=== PATIENT | female | born 1950 | race African-American/Black ===

== ENCOUNTER 2016-06-19 17:18 | Emergency (ER) | payer OTHER ==
[~2016-06-19] VITALS: Ht 167.6 cm; Wt 113.0 kg
[~2016-06-19 17:18] MED LIST: CYMBALTA60 MG PO; FLEXERIL PO; FLONASE 0.05%50 MCG NASAL; LYRICA 50 MG50 MG PO; MAXZIDE-25 MG1 EACH PO; NORCO 5-325 TA1 EACH PO; TESSALON PERLE100 MG PO
[2016-06-19 18:58] VITALS: BP 134/83
== END 2016-06-19 18:58 | disposition home or self-care (01) ==
LOC: ER 17:18
DX: S09.8XXA Other specified injuries of head, initial encounter (principal); I10 Essential (primary) hypertension; Z88.0 Allergy status to penicillin; W18.09XA Striking against other object with subsequent fall, initial encounter; Y93.89 Activity, other specified; Y92.89 Other specified places as the place of occurrence of the external cause; Y99.8 Other external cause status

== ENCOUNTER 2018-06-27 19:28 | Emergency (ER) | payer OTHER ==
[~2018-06-27] VITALS: Ht 167.6 cm; Wt 108.9 kg
[2018-06-27] MEDS ORDERED: INDOMETHACIN 5050 M1 PO (20:18)
[2018-06-27] MEDS ORDERED: NORCO 5-325 TA1 EACH PO (20:18)
[2018-06-27] MEDS ORDERED: COLCHICINE0.6 MG PO (20:18)
[2018-06-27 20:45] VITALS: BP 144/72
== END 2018-06-27 20:45 | disposition home or self-care (01) ==
LOC: ER 19:28
DX: M10.072 Idiopathic gout, left ankle and foot (principal); I10 Essential (primary) hypertension; Z96.641 Presence of right artificial hip joint; Z96.651 Presence of right artificial knee joint

== ENCOUNTER 2019-09-02 17:07 | Emergency (ER) | payer OTHER ==
[~2019-09-02] VITALS: Ht 165.1 cm; Wt 111.6 kg
[~2019-09-02 17:07] MED LIST changes: +COLCHICINE0.6 MG PO; +INDOMETHACIN 5050 M1 PO
[2019-09-02] MEDS ORDERED: PREDNISONE 20 M20 MG PO (18:04)
[2019-09-02] MEDS ORDERED: FAMOTIDINE 20 M20 MG PO (18:04)
[2019-09-02 19:08] VITALS: BP 132/74
== END 2019-09-02 19:09 | disposition home or self-care (01) ==
LOC: ER 17:07
DX: T78.40XA Allergy, unspecified, initial encounter (principal); I10 Essential (primary) hypertension; Z79.899 Other long term (current) drug therapy; Z88.0 Allergy status to penicillin; Y92.89 Other specified places as the place of occurrence of the external cause